=== PATIENT | male | born 2000 | race Caucasian/White ===

== ENCOUNTER 2024-04-15 21:27 | Emergency (ER) | payer BC, OTHER ==
[2024-04-15] MEDS ORDERED: IBUPROFEN 400 MG TAB ONE (21:52)
[2024-04-15] MEDS ORDERED: LIDOCAINE 1% 20 ML MDV ONE ×2 (21:52→23:56)
[2024-04-15] MEDS ORDERED: CODEINE 30MG/APAP 300MG TAB ONE ×2 (21:53→21:59)
[2024-04-15] MEDS ORDERED: TDAP (DIPHTH,PERTUSS(ACELL),TET VAC) 0.5 ML VIAL IMVAC ONE (21:55)
--- NOTE | 2024-04-15 22:29 | RAD REPORT ---
EXAM DESCRIPTION: RAD - Hand Left 3 View - 04/15/2024 10:23 pm CLINICAL HISTORY: left hand Trauma, pain COMPARISON: <Comparisons> FINDINGS: No acute fracture or dislocation. Mild soft tissue swelling is seen adjacent to the fifth metacarpal.
--- NOTE | 2024-04-16 00:13 | EDPHYS ---
Physician Documentation [facility] Name: Alexandre Adam Age: 23 yrs Sex: Male : 2000 Arrival Date: 04/15/2024 Time: 21:27 Bed 13 Private MD: ED Physician Jesus Call HPI: 04/15 21:35 This 23 yrs old Male presents to ER via Unassigned with complaints of Hand sp4 Injury. 04/16 03:11 Patient presents with acute left hand injury after it was caught between ball and the sp4 trailer. Patient is left hand laceration in the webspace between left index finger and left thumb. Also associated soft tissue injury. This happened just prior to arrival.. Historical: - Allergies: 04/15 21:42 No Known Allergies; 8 - Home Meds: 21:42 None [Active]; jh8 - PMHx: 21:42 None; jh8 - PSHx: 21:42 None; jh8 - Immunization history:: Adult Immunizations up to date, Last tetanus immunization: unknown. - Infectious Disease History:: Denies. - Social history:: Smoking status: Patient denies any tobacco usage or history of. Patient/guardian denies using. - Family history:: not pertinent. ROS: 04/16 03:11 Constitutional: Negative for fever, chills, and weight loss, positive for left hand sp4 pain and laceration. All other systems are negative, Exam: 03:11 Constitutional: This is a well developed, well nourished patient who is awake, alert, sp4 and in no acute distress. Head/Face: Normocephalic, atraumatic. Eyes: Pupils equal round and reactive to light, extra-ocular motions intact. Lids and lashes normal. Conjunctiva and sclera are not injected. Cornea within normal limits. Periorbital areas with no swelling, redness, or edema. ENT: Nares patent. No nasal discharge, no septal abnormalities noted. Tympanic membranes are normal and external auditory canals are clear. Oropharynx with no redness, swelling, or masses, exudates, or evidence of obstruction, uvula midline. Mucous membranes moist. Neck: Trachea midline, no thyromegaly or masses palpated, and no cervical lymphadenopathy. Supple, full range of motion without nuchal rigidity, or vertebral point tenderness. Chest/axilla: Normal chest wall appearance and motion. Nontender with no deformity. No lesions are appreciated. Cardiovascular: Regular rate and rhythm with a normal S1 and S2. No gallops, murmurs, or rubs. Normal PMI, no JVD. No pulse deficits. Respiratory: Lungs have equal breath sounds bilaterally, clear to auscultation and percussion. No rales, rhonchi or wheezes noted. No increased work of breathing, no retractions or nasal flaring. Abdomen/GI: Soft, with normal bowel sounds. No distension or tympany. No guarding or rebound. No evidence of tenderness throughout. Back: No spinal tenderness. No costovertebral tenderness. Skin: Warm, dry with normal turgor. Normal color with no rashes, no lesions, and no evidence of cellulitis. MS/ Extremity: Pulses equal, no cyanosis. Neurovascular intact. Full, normal range of motion. Positive left hand soft tissue injury to the webspace between left index finger and left thumb. There is approximately 3 to 4 cm laceration to the webspace between the left index and left thumb Neuro: Awake and alert, GCS 15, oriented to person, place, time, and situation. Cranial nerves II-XII grossly intact. Motor strength 5/5 in all extremities. Sensory grossly intact. Psych: Awake, alert, with orientation to person, place and time. Behavior, mood, and affect are within normal limits Vital Signs: 04/15 21:40 BP 139 / 91; Pulse 66; Resp 18; Temp 98.8; Pulse Ox 98% ; Weight 70.31 kg (R); Height 5 [facility] ft. 7 in. (R); Pain 6/10; 04/16 00:17 BP 117 / 78; Pulse 78; Resp 18; Temp 98; Pulse Ox 99% ; Pain 0/10; [facility] 04/15 21:40 Body Mass Index 24.28 (70.31 kg, 170.18 cm) [facility] 04/15 21:40 Pain Scale: Adult [facility] 04/16 00:17 Pain Scale: Adult [facility] Rake Coma Score: 03:11 Eye Response: spontaneous(4). Motor Response: obeys commands(6). Verbal Response: sp4 oriented(5). Total: 15. Laceration: 00:09 Wound Repair of 4cm ( 1.6in ) subcutaneous laceration to Left first web space. Linear sp4 shaped.. Hemostasis noted.. Gross contamination.. Distal neuro/vascular/tendon intact. Anesthesia: Wound infiltrated with 20 mls of 1% lidocaine. Wound prep: Moderate cleansing by me, Copious irrigation. Skin closed with 8 4-0 Silk using interrupted sutures and sterile technique. Dressed with 4x4's, Kerlix, non-adherent dressing. Patient tolerated well. MDM: 04/15 21:43 Patient medically screened. sp4 04/16 00:09 Data reviewed: vital signs, nurses notes, radiologic studies, plain films. sp4 Consideration of Admission/Observation Escalation of care including admission/observation considered. ED course: X-rays negative. Laceration was repaired. Patient stable for discharge home. Advised dressing changes daily, suture removal after 14 days. . 00:11 ED course: EXAM DESCRIPTION: RAD - Hand Left 3 View - 04/15/2024 10:23 pm CLINICAL sp4 HISTORY: left hand Trauma, pain COMPARISON: FINDINGS: No acute fracture or dislocation. Mild soft tissue swelling is seen adjacent to the fifth metacarpal. . 03:11 Differential diagnosis: dislocation, open fracture, closed fracture, contusion, sp4 abrasion, tendonitis. 04/15 21:42 Order name: Hand Left 3 View XRAY; Complete Time: 23:32 sp4 04/15 21:43 Order name: Dressing - Wound; Complete Time: 22:08 sp4 04/15 21:43 Order name: Gloves, Sterile; Complete Time: 22:08 sp4 04/15 21:43 Order name: Setup Suture Tray; Complete Time: 22:08 sp4 Administered Medications: 04/15 21:56 Drug: Boostrix Tdap IM 0.5 ml IM once; as a single dose {Note: lot # [id number] exp: jh8 05/19/26 [employer].} Route: IM; Site: right deltoid; 21:56 Drug: Lidocaine Infiltration (1 %) 20 ml 20 ml Infiltration once; to bedside Volume: 20 jh8 ml; Route: Infiltration; Site: wound; 21:57 Drug: Acetaminophen-Codeine PO (300 mg-30 mg) 2 tabs PO once; RASS on ADMIN: Combtv4, jh8 Very Agttd3, Agttd2, Rstlss1, AlertClm0, Drwsy-1, Lt Sdtn-2, Mod Sdtn-3, Dp Sdtn-4, UnArsble-5 Route: PO; 21:57 Drug: Ibuprofen PO 800 mg PO once Route: PO; jh8 Disposition Summary: 04/16/24 00:12 Discharge Ordered Notes: Suture removal advised after 14 days Location: Home sp4 Problem: new sp4 Symptoms: have improved sp4 Condition: Stable sp4 Diagnosis - Laceration without foreign body of left hand, initial encounter sp4 - Soft tissue crushing injury left hand, left thumb to left index finger webspace sp4 injury Followup: sp4 - With: Private Physician - When: 10 - 14 days - Reason: Recheck today's complaints Discharge Instructions: - Discharge Summary Sheet sp4 - Laceration Care, Adult sp4 Forms: - Patient Portal Instructions sp4 Signatures: Dispatcher [employer] Jesus Penaloza MD MD sp4 Winston Francis RN RN jh8 Corrections: (The following items were deleted from the chart) 22:13 21:43 Wrist Left 3 View+RAD.RAD.BRZ ordered. EDMS EDMS
--- NOTE | 2024-04-16 00:13 | ER ---
Nurse's Notes [facility] Name: Alexandre Adam Age: 23 yrs Sex: Male : 2000 Arrival Date: 04/15/2024 Time: 21:27 Bed 13 Private MD: Diagnosis: Laceration without foreign body of left hand, initial encounter;Soft tissue crushing injury left hand, left thumb to left index finger webspace injury Presentation: 04/15 21:40 Chief complaint: Patient states: crush injury to hand in between trailer hitch and jh8 truck hitch, lac noted in between thumb and index finger, no active bleeding, unsure if tetanus is up to date. Coronavirus screen: Client denies travel out of the [place] in the last 14 days. At this time, the client does not indicate any symptoms associated with coronavirus-19. Ebola Screen: No symptoms or risks identified at this time. Initial Sepsis Screen: Does the patient meet any 2 criteria? No. Patient's initial sepsis screen is negative. Does the patient have a suspected source of infection? No. Patient's initial sepsis screen is negative. Risk Assessment: Do you want to hurt yourself or someone else? Patient reports no desire to harm self or others. Onset of symptoms was April 15, 2024. 21:40 Method Of Arrival: Ambulatory [facility] 21:40 Acuity: RUMA 4 [facility] Triage Assessment: 21:44 General: Appears in no apparent distress. comfortable, well groomed, well developed, [facility] well nourished. Pain: Complains of pain in left hand Pain currently is 6 out of 10 on a pain scale. Quality of pain is described as aching. Musculoskeletal: No deficits noted. Circulation, motion, and sensation intact. Capillary refill < 3 seconds, Range of motion: intact in all extremities, lac to lt hand. Injury Description: Crush injury sustained to left hand is Deformity Laceration sustained to left hand is clean, full thickness, 2.6 to 7.5 cm long, not bleeding. 04/16 00:18 General: Behavior is calm, cooperative, appropriate for age. [facility] Historical: - Allergies: 04/15 21:42 No Known Allergies; [facility] - Home Meds: 21:42 None [Active]; [facility] - PMHx: 21:42 None; [facility] - PSHx: 21:42 None; [facility] - Immunization history:: Adult Immunizations up to date, Last tetanus immunization: unknown. - Infectious Disease History:: Denies. - Social history:: Smoking status: Patient denies any tobacco usage or history of. Patient/guardian denies using. - Family history:: not pertinent. Screenin/31 00:17 [facility] ED Fall Risk Assessment (Adult) History of falling in the last 3 months, [facility] including since admission No falls in past 3 months (0 pts) Confusion or Disorientation No (0 pts) Intoxicated or Sedated No (0 pts) Impaired Gait No (0 pts) Mobility Assist Device Used No (0 pt) Altered Elimination No (0 pt) Score/Fall Risk Level 0 - 2 = Low Risk. Abuse screen: Denies threats or abuse. Denies injuries from another. Nutritional screening: No deficits noted. Tuberculosis screening: No symptoms or risk factors identified. Vital Signs: 04/15 21:40 BP 139 / 91; Pulse 66; Resp 18; Temp 98.8; Pulse Ox 98% ; Weight 70.31 kg (R); Height 5 [facility] ft. 7 in. (R); Pain 6/10; 04/16 00:17 BP 117 / 78; Pulse 78; Resp 18; Temp 98; Pulse Ox 99% ; Pain 0/10; [facility] 04/15 21:40 Body Mass Index 24.28 (70.31 kg, 170.18 cm) [facility] 04/15 21:40 Pain Scale: Adult [facility] 04/16 00:17 Pain Scale: Adult [facility] Barnard Coma Score: 03:11 Eye Response: spontaneous(4). Motor Response: obeys commands(6). Verbal Response: sp4 oriented(5). Total: 15. ED Course: 04/15 21:33 Patient arrived in ED. vc1 21:35 Jesus Call MD is Attending Physician. sp4 21:42 Triage completed. [facility] 21:47 Arm band placed on right wrist. Patient placed in an exam room, on a stretcher. Bandage 8 applied. 22:25 Hand Left 3 View XRAY In Process Unspecified. EDMS 23:[address] Call at bedside for lac repair. [facility] 04/16 00:18 Patient has correct armband on for positive identification. Bed in low position. Call [facility] light in reach. Side rails up X 1. Provided Education on: lac repair. 00:18 No provider procedures requiring assistance completed. 8 00:19 Patient did not have IV access during this emergency room visit. [facility] Administered Medications: 04/15 21:56 Drug: Boostrix Tdap IM 0.5 ml IM once; as a single dose {Note: lot # [id number] exp: jh8 05/19/26 [employer].} Route: IM; Site: right deltoid; 21:56 Drug: Lidocaine Infiltration (1 %) 20 ml 20 ml Infiltration once; to bedside Volume: 20 jh8 ml; Route: Infiltration; Site: wound; 21:57 Drug: Acetaminophen-Codeine PO (300 mg-30 mg) 2 tabs PO once; RASS on ADMIN: Combtv4, jh8 Very Agttd3, Agttd2, Rstlss1, AlertClm0, Drwsy-1, Lt Sdtn-2, Mod Sdtn-3, Dp Sdtn-4, UnArsble-5 Route: PO; 21:57 Drug: Ibuprofen PO 800 mg PO once Route: PO; [facility] Medication: 04/16 00:18 Vaccine Information Statement (VIS) provided today. Questions and/or concerns [facility] addressed. VIS edition date: April 16, 2024. Outcome: 00:12 Discharge ordered by . sp4 00:19 Discharged to home ambulatory, with family, [facility] 00:19 Condition: improved 00:19 Discharge instructions given to patient, Instructed on discharge instructions, follow up and referral plans. Demonstrated understanding of instructions, follow-up care, Prescriptions given X 00:20 Patient left the ED. [facility] Signatures: Dispatcher [employer] EDMS Ana Rosa Flynn RN RN 1 Jesus Call MD MD sp4 Winston Francis RN RN 8
[2024-04-16 02:25] VITALS: BP 117/78; TEMP 98; O2SAT 99
== END 2024-04-16 00:20 | disposition home or self-care (01) ==
LOC: ER 21:27
PROC: 0HQGXZZ Repair Left Hand Skin, External Approach (ICD-10-PCS; principal; 2024-04-16)
DX: S61.412A Laceration without foreign body of left hand, initial encounter (principal); S67.22XA Crushing injury of left hand, initial encounter
CPT/HCPCS: 73130; 96372; 99284; 12002; J2001 ×2